=== PATIENT | female | born 1940 | race African-American/Black ===

== ENCOUNTER 2020-12-27 19:39 | Observation (INO) ==
[2020-12-27] MEDS ORDERED: NORMAL SALINE 1,000 ML IV ONE (19:56)
[2020-12-27] MEDS ORDERED: ONDANSETRON HCL/PF 2 MG/ML VIAL IV ONE ×2 (19:56→22:56)
--- NOTE | 2020-12-27 20:01 | ERNOTE ---
Medical Problem HPI - Narrative Date of Service: 12/27/20 - General Chief Complaint: General Assessment Time Seen by Provider: 12/27/20 19:54 Source: patient Exam Limitations: no limitations - Immun/Allergies/Home Medications Immunizations: IMMUNIZATION HX Immunizations Up to Date Yes History of Influenza Vaccine No Hx Pneumococcal Vaccination No Allergies/Adverse Reactions: Allergies Penicillins Allergy (Mild, Verified 12/27/20 19:48) hive Home Medications: HOME MEDICATIONS hydrochlorothiazide 25 mg tablet 25 mg PO DAILY #90 tab 07/10/20 [Last Taken Unknown] metoprolol succinate 25 mg tablet,extended release 24 hr 25 mg PO DAILY #90 tab 08/10/20 [Last Taken Unknown] Diphenoxylate HCl/Atropine [Lomotil Tablet] 1 ea PO QID #10 tab 12/25/20 [Last Taken Unknown] Ondansetron [Zofran Odt] 4 mg PO Q6H PRN #10 tab 12/25/20 [Last Taken Unknown] - History of Present History Narrative: 80-year-old female was seen 3 nights ago to the emergency room for vomiting and diarrhea after eating some bad food at [employer] at that point she was treated and released with Zofran and Lomotil she states that she went home took her Lomotil and Zofran for her diarrhea has slowed up considerably as her vomiting but she still is vomiting her appetite is poor she has not eaten much in the last 3 days she has had a couple bottles of Pedialyte Gatorade denies any abdominal pain no melena Date (Duration): 12/24/20 Time (Timing): 19:59 Timing: constant Severity: moderate Modifying Factors - (Improves): Present: eating, rest Modifying Factors - (Worsens): Present: other Review of Systems - Review of Systems Constitutional: Present: no symptoms reported EYE: Present: no symptoms reported ENT: Present: no symptoms reported Respiratory: Present: no symptoms reported Cardiology: Present: no symptoms reported Gastrointestinal/Abdominal: Present: no symptoms reported Genitourinary: Present: no symptoms reported Musculoskeletal: Present: no symptoms reported Skin: Present: no symptoms reported Neurological: Present: no symptoms reported All Other Systems: All systems neg except as marked Medical History (Last Reviewed 12/27/20 @ 20:00 by Stoney Conklin MD) HTN (hypertension) Onset Date: Unknown History of GI bleed Onset Date: ~2009 Surgical History: Surgical History (Last Reviewed 12/27/20 @ 20:00 by Stoney Conklin MD) H/O abdominal surgery Onset Date: ~2009 GI bleed History of colonoscopy Onset Date: ~2016 WNL per patient Family History: Family History (Last Reviewed 12/27/20 @ 20:35 by Ally Yoo RN) Mother Hypertension Father No problems noted. 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 Highest level of school completed/degree received: 10th grade Service: No Tobacco: Smoking Status: Former smoker how long ago did patient quit smoking: quit 25 years ago-07/2020 Alcohol: alcohol intake: never Substance Use: substance use type: does not use Dietary Habits: caffeine: No Physical Exam - Physical Exam General Appearance: Present: wd/wn, alert, moderate distress Head Exam: Present: normal inspection Eye Exam: Normal inspection: bilateral Ears, Nose, Throat: Present: pharyngeal erythema, dry mucous membranes Neck: Present: normal inspection Respiratory: Present: no respiratory distress Cardiovascular/Chest: Present: tachycardia Gastrointestinal/Abdominal: Present: normal bowel sounds Back Exam: Present: normal inspection Extremity Exam: Present: normal inspection Neurological Exam: Present: alert, oriented Skin Exam: Present: normal color Lymphatic Exam: Present: no adenopathy Progress - Results and Orders Patient's Lab Results:: I have reviewed the patient's lab results. Results and Orders: Laboratory Tests 12/27/20 12/27/20 12/27/20 20:15 20:15 20:15 WBC 6.3 D RBC 5.25 Hgb 15.4 Hct 47.7 H MCV 90.9 MCH 29.3 Neutrophils % 51.6 Lymphocytes % 33.9 Sodium 136 Plasma Sodium 137 Potassium 3.8 Chloride 102 Carbon Dioxide 17.4 L Anion Gap 20.4 H BUN 46 H D Creatinine 1.98 H D Est GFR (Non-Af Amer) 31 L D Lactic Acid, Venous 2.3 H* Calcium 10.2 Calcium Adj for Albumin 10.0 Total Bilirubin 1.6 H AST 25 ALT 30 Alkaline Phosphatase 153 Total Protein 9.8 H Albumin 3.9 Amylase 79 Lipase 150 - Vital Signs Patient's Vital Signs:: I have reviewed the patient's vital signs. Vital Signs: Vital Signs 12/27/20 19:44 Temperature 36.9 C Pulse Rate 122 H Respiratory Rate 18 Blood Pressure 116/85 O2 Sat by Pulse Oximetry 99 - X-Ray X-Ray #1 X-Ray: abdomen Interpretation: Interp. by me X-ray Comments: Diffuse ileus of the abdomen possible air-fluid levels in the right lower quadrant of abdomen - CT/Ultrasound CT/Ultrasound Narrative: CAT scan of the abdomen pelvis with IV contrast acute right abdominal small bowel obstruction with colonic and small bowel postoperative changes left renal pelvic nephrolithiasis intrapulmonary noncalcified reticular nodularity (or uterine fibroids - Progress/Reassessment Chief Complaint: General Assessment Plan - Plan Plan: Place an NG tube into the patient to decompress her and I will admit to the hospital for observation surgical eval in the morning admit to Dr. Lopez Departure Clinical Impression: Small bowel obstruction due to adhesions - Departure Disposition: Short Term Hospital Inpatient Condition: Stable Referrals: Maribeth Jasso MD [Primary Care Provider] -
[2020-12-27 20:37] LABS: Albumin * 3.9 gm/dl (3.4-5.0); Anion Gap 20.4 mmol/L (6.8-13.8); BUN/Creatinine Ratio 23.2 (9.0-21.6); Bilirubin, Total 1.6 mg/dL (0.0-1.1); Calcium * 10.2 mg/dL (7.9-10.9); Carbon Dioxide 17.4 mmol/L (24-32.6); Potassium 3.8 mmol/L (3.4-4.6); Total Protein 9.8 gm/dL (6.2-8.2)
[2020-12-27 20:56] LABS: Hematocrit 47.7 % (37.0-47.0); Hemoglobin 15.4 gm/dL (12.5-16.0); Mean Cell Volume 90.9 fl (78-100); Mean Corpuscular Hemoglobin 29.3 pg (27-31); Mean Corpuscular Hgb Conc 32.3 g/dl (32-36); Mean Platelet Volume 11.7 fl (8-12.5); Neutrophil # 3.2 K/mm3 (1.3-6.0); Neutrophil % 51.6 % (42-75.0); Platelet Count 231 K/mm3 (150-450); Red Blood Count 5.25 M/mm3 (4.2-5.4); Red Cell Distribution Width 13.8 % (11.5-14.0); White Blood Count 6.3 K/mm3 (4.0-10.5)
[2020-12-27] MEDS ORDERED: DIATRIZOATE MEGLUMINE, SODIUM 30 ML BTL PO ONE (21:46)
[2020-12-27 21:53] LABS: Urine Bilirubin 3 mg/dl (NEGATIVE); Urine Blood 25 /ul (NEGATIVE); Urine Ketone Negative (NEGATIVE); Urine Nitrite Negative (NEGATIVE); Urine Protein 100 mg/dL (NEGATIVE); Urine Specific Gravity >=1.030 SP.GR. (1.005-1.010); Urine Urobilinogen Normal (NORMAL)
[2020-12-27 22:01] LABS: Urine Appearance Cloudy (CLEAR); Urine Color Yellow
[2020-12-27 22:02] LABS: Urine RBC TRACE /hpf (0-5); Urine WBC 0-5 /hpf (0-5)
[2020-12-27 22:03] LABS: Urine Bacteria 4+; Urine Hyaline Cast TRACE /LPF
[2020-12-28] MEDS ORDERED: LEVOFLOXACIN IN DEXTROSE 5 % 500 MG/100 ML BAG IV SCH (01:00)
[2020-12-28] MEDS ORDERED: NORMAL SALINE 1,000 ML IV PRN (08:51)
[2020-12-28] MEDS ORDERED: ONDANSETRON HCL/PF 2 MG/ML VIAL IV PRN (08:53)
[2020-12-28] MEDS ORDERED: DIPHENOXYLATE HCL/ATROP SULF 2.5 MG TABLET PO SCH (09:15)
[2020-12-28] MEDS: NORMAL SALINE 2,000 ML IV PRN ×2 (09:45→18:44)
[2020-12-28] MEDS: PANTOPRAZOLE SODIUM 40 MG in NORMAL SALINE 100 ML IV SCH (09:55)
--- NOTE | 2020-12-28 10:27 | CONS ---
[facility] - General Date of Service: 12/28/20 Narrative: She was admitted to observation status through the ER last night. Nasogastric tube was placed and I was consulted. Source: patient, RN/MD, RN notes reviewed Exam Limitations: no limitations - History of Present Illness Initial Comments: The patient is an 80-year-old female who was seen in the emergency room on 12/24/2020 for diarrhea after eating [employer]. She had lab work done but no imaging studies. She was discharged with a prescription for 10 Lomotil pills. She states she has been taking them and has 3 left. Since then she continued to have some loose stools but developed more abdominal pain and distention yesterday so she went to the ER. Initial flat and upright abdominal x-ray suggested ileus versus obstruction. A CT scan was obtained. The initial read from [facility] suggested acute small bowel obstruction. Over read this morning shows dilated loops of small and large intestine with small bowel in the right abdomen and colon on the left side. The patient has had a liquid bowel movement since admission. She states her abdomen feels much better. She is hungry and would like "some juice". Her past medical history is remarkable for a colon resection which was done at [facility] in [place]. She states she had presented to [facility] with GI bleeding. "They could never find where I was bleeding from", but I had diverticulosis. She then had a colon resection in [place]. She thinks half of her colon was removed. Since the operation her stools have been looser and she goes once or twice a day. She denies heartburn or reflux symptoms. Timing/Duration: other - Started with diarrhea on 12/24/2020 Severity: moderate Modifying Factors - (Worsens): Reports: eating Modifying Factors - (Improves): Reports: rest Associated Symptoms: denies symptoms Allergies/Adverse Reactions: Allergies Penicillins Allergy (Mild, Verified 12/27/20 19:48) hive Home Medications: Home Medications Medication Instructions Recorded Last Taken hydrochlorothiazide 25 mg tablet 25 mg PO DAILY #90 tab 07/10/20 Unknown metoprolol succinate 25 mg 25 mg PO DAILY #90 tab 08/10/20 Unknown tablet,extended release 24 hr Diphenoxylate HCl/Atropine 1 ea PO QID #10 tab 12/25/20 Unknown [Lomotil Tablet] Ondansetron [Zofran Odt] 4 mg PO Q6H PRN #10 tab 12/25/20 Unknown Medications - Medications Current Medications: Current Medications Levofloxacin/Dextrose (Levaquin) 500 mg in 100 mls @ 100 mls/hr IV Q24H [facility]; Protocol Stop: 01/27/21 01:01 Last Infusion: 12/28/20 02:33 Dose: Infused Documented by: Pantoprazole Sodium 40 mg/ (Sodium Chloride) 100 mls @ 400 mls/hr IV Q24H [facility] Stop: 01/27/21 09:01 Last Admin: 12/28/20 09:55 Dose: 400 mls/hr Documented by: Sodium Chloride (Sodium Chloride 0.9%) 2,000 mls @ 125 mls/hr IV .Q16H PRN PRN Reason: HYDRATION Stop: 01/27/21 08:52 Last Admin: 12/28/20 09:45 Dose: 125 mls/hr Documented by: Review of Systems - Review of Systems Generalized/Overall Review: Absent: Chills, Fever EENTM: Present: Other - Only complains of discomfort from the NG tube Respiratory: Absent: Cough, Shortness of Breath Cardiac: Absent: Chest Pain, Palpitations Abdominal: Present: Other - Currently she states her abdomen does not hurt. She states she feels much better than when she was admitted. She has had a liquid bowel movement since admission. She is hungry Musculoskeletal: Present: No Symptoms Reported Neurological: Present: No Symptoms Reported Skin: Present: No Symptoms Reported Endocrine: Present: No Symptoms Reported Physical Examination - Exam Vital Signs: Vital Signs - Last Taken Temp 36.7 C 12/28/20 10:05 Pulse 77 12/28/20 10:05 Resp 16 12/28/20 10:05 BP 149/68 12/28/20 10:05 Pulse Ox 99 12/28/20 06:00 O2 Oxygen Delivery Method Room Air Constitutional: Present: Alert, Oriented x3, Cooperative, Well developed, Well nourished, Obese ENT Exam: Present: normal ENT inspection, other - NG tube in good position Neck: Present: full range of motion, normal inspection Breasts: Present: Exam deferred Respiratory: Present: normal breath sounds, no respiratory distress Cardiovascular/Chest: Present: regular rate, rhythm, no murmur. Absent: edema Abdomen: Present: other - She has a well-healed low midline surgical incision. Her abdomen is obese and protuberant with tympany to percussion but no percussion tenderness. There is no discrete point tenderness and no rebound tenderness is elicited Neurologic: Present: clinical application specialist II-XII nml as tested, no motor/sensory deficits Appearance: Present: appropriate appearance, appropriate insight, no memory impairment Eye contact: Present: cooperative, good eye contact, normal speech Thoughts: Present: normal thought pattern - Results and Findings: Lab/Microbiology results last 24 hrs: Abnormal/Pending Laboratory Last 24 HRS 12/27/20 12/27/20 12/27/20 23:00 21:34 20:15 Hct Immature Gran % (Auto) Monocytes % Carbon Dioxide Anion Gap BUN Creatinine Est GFR (Non-Af Amer) BUN/Creatinine Ratio Random Glucose Lactic Acid, Venous 2.5 H* 2.3 H* Total Bilirubin Total Protein Urine Protein 100 H Urine Blood 25 H Urine Bilirubin 3 H Ur Leukocyte Esterase 75 H Ur Epithelial Cells 5-10 H Urine Bacteria 4+ H 12/27/20 12/27/20 20:15 20:15 Hct 47.7 H Immature Gran % (Auto) 0.50 H Monocytes % 13.2 H Carbon Dioxide 17.4 L Anion Gap 20.4 H BUN 46 H D Creatinine 1.98 H D Est GFR (Non-Af Amer) 31 L D BUN/Creatinine Ratio 23.2 H Random Glucose 172 H Lactic Acid, Venous Total Bilirubin 1.6 H Total Protein 9.8 H Urine Protein Urine Blood Urine Bilirubin Ur Leukocyte Esterase Ur Epithelial Cells Urine Bacteria - Assessments/Findings (1) Small bowel obstruction Diagnosis(s): Given her history, the CT scan appearance would be most consistent with a right hemicolectomy. She has has had a bowel movement since admission and minimal NG output. Her abdominal exam is benign. The clinical picture is more compatible with an ileus due to Lomotil than a bowel obstruction. Whether this represents an ileus from having taken Lomotil or possibly from an asymptomatic urinary tract infection is unclear. She does not appear to have a complete small bowel obstruction at this time. She could however potentially have adhesions from her previous surgery. I would recommend trial clamping the NG with clear liquids and any needed p.o. medication. If this is tolerated potentially the NG tube could be removed. Case discussed with Dr. Jasso. Will follow Problem: Acute
--- NOTE | 2020-12-28 10:47 | HP ---
Chief Complaint - Chief Complaint Date of Service: 12/28/20 Time of Service: 10:33 Chief Complaint: I had diarrhea then abdominal pain for 5 days. History of Present Illness: 80-year-old -[place] female with past medical history of diverticulosis with GI bleed, obesity, and hypertension was evaluated in the ER yesterday evening for worsening abdominal pain and distention. The patient was initially seen on Friday when she was treated for acute diarrhea after consuming [employer] chicken. After an evaluation the patient was discharged with Lomitil to help with the diarrhea, several days later her diarrhea improved but she develops intense abdominal pain and distention. The patient also reports becoming nauseous and vomited once. She denies any fever chills or any other symptoms. Once in the ER imaging showed possible bowel obstruction, however after an abdominal CT it was determined that intestinal ileus was more likely most likely secondary to the antidiarrhea she was prescribed in the ER initially. ER labs also revealed an acute kidney injury most likely secondary to her acute diarrhea and a UTI. At this time the patient denies any urinary tract symptoms but given her acute diarrhea it is possible that her urinary tract got infected with excessive wiping. Urine culture was sent to lab and surgery was consulted. The patient was evaluated this morning by Dr. Hughes who after evaluating her determined that the patient does not have bowel obstruction but an ileus due to past right hemicolectomy and antidiarrheal medications. He recommends a trial of nasogastric tube clamping and starting clear liquids to see if she tolerates. I am in agreement with this plan, so orders were placed. In the meantime the patient will need IV hydration to treat her DANA. Medical History (Last Reviewed 12/27/20 @ 20:35 by Ally Yoo RN) HTN (hypertension) Onset Date: Unknown History of GI bleed Onset Date: ~2009 Surgical History: Surgical History (Last Reviewed 12/27/20 @ 20:35 by Ally Yoo RN) H/O abdominal surgery Onset Date: ~2009 GI bleed History of colonoscopy Onset Date: ~2017 WNL per patient Family History: Family History (Last Reviewed 12/27/20 @ 20:35 by Ally Yoo RN) Mother Hypertension Father No problems noted. 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 Highest level of school completed/degree received: 10th grade Service: No Tobacco: Smoking Status: Former smoker how long ago did patient quit smoking: quit 25 years ago-07/2020 Alcohol: alcohol intake: never Substance Use: substance use type: does not use Dietary Habits: caffeine: No Peds Patient Hx - Developmental: No Pertinent Hx Peds Patient Hx - Medical: No Pertinent Hx Peds Patient Hx - Cardiac/Respiratory: No Pertinent Hx Peds Patient Hx - Surgical: No Surgical History Patient History - Cancer: No Hx of Cancer Review Of Systems (GEN) - Review of Systems Generalized/Overall Review: Present: No Symptoms Reported EENTM: Present: No Symptoms Reported Respiratory: Present: No Symptoms Reported Cardiac: Present: No Symptoms Reported Abdominal: Present: Nausea, Vomiting, Abdominal Pain, Diarrhea Genitourinary: Present: No Symptoms Reported Musculoskeletal: Present: No Symptoms Reported Neurological: Present: No Symptoms Reported Skin: Present: No Symptoms Reported Endocrine: Present: No Symptoms Reported Immunizations: IMMUNIZATION HX Immunizations Up to Date Yes History of Influenza Vaccine No Hx Pneumococcal Vaccination No Allergies/Adverse Reactions: Allergies Allergy/AdvReac Type Severity Reaction Status Date / Time Penicillins Allergy Mild hive Verified 12/27/20 19:48 Home Medications: HOME MEDICATIONS hydrochlorothiazide 25 mg tablet 25 mg PO DAILY #90 tab 07/10/20 [Last Taken Unknown] metoprolol succinate 25 mg tablet,extended release 24 hr 25 mg PO DAILY #90 tab 08/10/20 [Last Taken Unknown] Diphenoxylate HCl/Atropine [Lomotil Tablet] 1 ea PO QID #10 tab 12/25/20 [Last Taken Unknown] Ondansetron [Zofran Odt] 4 mg PO Q6H PRN #10 tab 12/25/20 [Last Taken Unknown] Exam - Exam Vital Signs: Vital Signs - Last Taken Temp 36.7 C 12/28/20 10:05 Pulse 77 12/28/20 10:05 Resp 16 12/28/20 10:05 BP 149/68 12/28/20 10:05 Pulse Ox 99 12/28/20 06:00 Constitutional: Present: Alert, Oriented x3, Cooperative, Well developed, Well nourished, No distress, Elderly ENT Exam: Present: normal ENT inspection, hearing grossly normal, pharynx normal, TMs normal Eye Exam: bilateral eye: normal inspection, PERRL, EOMI Neck: Present: non-tender, full range of motion, supple, normal inspection, trachea midline Back Exam: Present: normal inspection, no CVA tenderness, no vertebral tenderness Breasts: Present: Exam deferred, Nontender Respiratory: Present: chest non-tender, lungs clear, normal breath sounds, no respiratory distress, no accessory muscle use Cardiovascular/Chest: Present: normal peripheral pulses, regular rate, rhythm, no chest tenderness, no edema, no gallop, no JVD, no murmur, no rub Abdomen: Present: Normal bowel sounds, soft, nontender, nondistended, no rebound tenderness, no hepatospenomegaly, no masses, obese /Rectal: Present: Exam deferred Extremity: Present: normal range of motion, non-tender, normal inspection, no pedal edema, no calf tenderness, normal capillary refill, pelvis stable Skin Exam: Present: normal color, warm/dry, no cyanosis Lymphatic: Present: no adenopathy Neurologic: Present: wheel alignment technician II-XII nml as tested, normal cerebellar test, no motor/sensory deficits, alert, normal mood/affect, oriented x 3 Appearance: Present: appropriate appearance, appropriate insight, neat, no memory impairment Eye contact: Present: cooperative, good eye contact, normal speech Thoughts: Present: normal thought pattern, no apparent hallucination Diagnostic Studies: Abnormal Lab Results 12/27/20 12/27/20 12/27/20 Range/Units 20:15 20:15 20:15 Hct 47.7 H (37.0-47.0) % Immature Gran % (Auto) 0.50 H (0.001-0.429) % Monocytes % 13.2 H (0.0-9) % Carbon Dioxide 17.4 L (24-32.6) mmol/L Anion Gap 20.4 H (6.8-13.8) mmol/L BUN 46 H D (3-23) mg/dL Creatinine 1.98 H D (0.4-1.4) mg/dL Est GFR (Non-Af Amer) 31 L D (60-130) mL/min BUN/Creatinine Ratio 23.2 H (9.0-21.6) Random Glucose 172 H (70-110) mg/dL Lactic Acid, Venous 2.3 H* (0.4-2.0) mmol/L Total Bilirubin 1.6 H (0.0-1.1) mg/dL Total Protein 9.8 H (6.2-8.2) gm/dL Urine Protein (NEGATIVE) mg/dL Urine Blood (NEGATIVE) /ul Urine Bilirubin (NEGATIVE) mg/dl Ur Leukocyte Esterase (NEGATIVE) /ul Ur Epithelial Cells (0-5) /hpf Urine Bacteria (NONE) 12/27/20 12/27/20 Range/Units 21:34 23:00 Hct (37.0-47.0) % Immature Gran % (Auto) (0.001-0.429) % Monocytes % (0.0-9) % Carbon Dioxide (24-32.6) mmol/L Anion Gap (6.8-13.8) mmol/L BUN (3-23) mg/dL Creatinine (0.4-1.4) mg/dL Est GFR (Non-Af Amer) (60-130) mL/min BUN/Creatinine Ratio (9.0-21.6) Random Glucose (70-110) mg/dL Lactic Acid, Venous 2.5 H* (0.4-2.0) mmol/L Total Bilirubin (0.0-1.1) mg/dL Total Protein (6.2-8.2) gm/dL Urine Protein 100 H (NEGATIVE) mg/dL Urine Blood 25 H (NEGATIVE) /ul Urine Bilirubin 3 H (NEGATIVE) mg/dl Ur Leukocyte Esterase 75 H (NEGATIVE) /ul Ur Epithelial Cells 5-10 H (0-5) /hpf Urine Bacteria 4+ H (NONE) Laboratory Results WBC 6.3 K/mm3 (4.0-10.5) D 12/27/20 20:15 RBC 5.25 M/mm3 (4.2-5.4) 12/27/20 20:15 Hgb 15.4 gm/dL (12.5-16.0) 12/27/20 20:15 Hct 47.7 % (37.0-47.0) H 12/27/20 20:15 MCV 90.9 fl (78-100) 12/27/20 20:15 MCH 29.3 pg (27-31) 12/27/20 20:15 MCHC 32.3 g/dl (32-36) 12/27/20 20:15 RDW 13.8 % (11.5-14.0) 12/27/20 20:15 Plt Count 231 K/mm3 (150-450) 12/27/20 20:15 MPV 11.7 fl (8-12.5) 12/27/20 20:15 Immature Gran % (Auto) 0.50 % (0.001-0.429) H 12/27/20 20:15 Immature Gran # (Auto) 0.03 K/mm3 (0.000-0.0310) 12/27/20 20:15 Neutrophils % 51.6 % (42-75.0) 12/27/20 20:15 Lymphocytes % 33.9 % (20-51) 12/27/20 20:15 Monocytes % 13.2 % (0.0-9) H 12/27/20 20:15 Eosinophils % 0.3 % (0.0-3.0) 12/27/20 20:15 Basophils % 0.5 % (0.0-1.0) 12/27/20 20:15 Nucleated RBC % 0.0 k/mm3 (0-1) 12/27/20 20:15 Neutrophils # 3.2 K/mm3 (1.3-6.0) 12/27/20 20:15 Lymphocytes # 2.13 k/mm3 (1.5-3.5) 12/27/20 20:15 Monocytes # 0.8 k/mm3 (0.0-1.0) 12/27/20 20:15 Eosinophils # 0.0 k/mm3 (0.0-0.7) 12/27/20 20:15 Absolute Basophils 0.0 k/mm3 (0.0-0.1) 12/27/20 20:15 Sodium 136 mmol/L (132-142) 12/27/20 20:15 Plasma Sodium 137 mmol/L (130-142) 12/27/20 20:15 Potassium 3.8 mmol/L (3.4-4.6) 12/27/20 20:15 Chloride 102 mmol/L (97-106) 12/27/20 20:15 Carbon Dioxide 17.4 mmol/L (24-32.6) L 12/27/20 20:15 Anion Gap 20.4 mmol/L (6.8-13.8) H 12/27/20 20:15 BUN 46 mg/dL (3-23) H D 12/27/20 20:15 Creatinine 1.98 mg/dL (0.4-1.4) H D 12/27/20 20:15 Est GFR (Non-Af Amer) 31 mL/min (60-130) L D 12/27/20 20:15 BUN/Creatinine Ratio 23.2 (9.0-21.6) H 12/27/20 20:15 Random Glucose 172 mg/dL (70-110) H 12/27/20 20:15 Lactic Acid, Venous 2.5 mmol/L (0.4-2.0) H* 12/27/20 23:00 Calcium 10.2 mg/dL (7.9-10.9) 12/27/20 20:15 Calcium Adj for Albumin 10.0 mg/dL (8.4-10.2) 12/27/20 20:15 Total Bilirubin 1.6 mg/dL (0.0-1.1) H 12/27/20 20:15 AST 25 U/L (0-48) 12/27/20 20:15 ALT 30 U/L (19-67) 12/27/20 20:15 Alkaline Phosphatase 153 U/L (50-170) 12/27/20 20:15 Total Protein 9.8 gm/dL (6.2-8.2) H 12/27/20 20:15 Albumin 3.9 gm/dl (3.4-5.0) 12/27/20 20:15 Amylase 79 U/L (25-115) 12/27/20 20:15 Lipase 150 U/L (73-393) 12/27/20 20:15 Urine Color Yellow 12/27/20 21:34 Urine Appearance Cloudy (CLEAR) 12/27/20 21:34 Urine pH 6.0 pH (5.0-7.0) 12/27/20 21:34 Ur Specific [place] >=1.030 SP.GR. (1.005-1.010) 12/27/20 21:34 Urine Protein 100 mg/dL (NEGATIVE) H 03/24/21 21:34 Urine Glucose (UA) Negative mg/dL (NEGATIVE) 12/27/20 21:34 Urine Ketones Negative mg/dL (NEGATIVE) 12/27/20 21:34 Urine Blood 25 /ul (NEGATIVE) H 12/27/20 21:34 Urine Nitrate Negative (NEGATIVE) 12/27/20 21:34 Urine Bilirubin 3 mg/dl (NEGATIVE) H 12/27/20 21:34 Urine Urobilinogen Normal EU/dl (NORMAL) 12/27/20 21:34 Ur Leukocyte Esterase 75 /ul (NEGATIVE) H 12/27/20 21:34 Urine RBC Trace /hpf (0-5) 12/27/20 21:34 Urine WBC 0-5 /hpf (0-5) 12/27/20 21:34 Ur Epithelial Cells 5-10 /hpf (0-5) H 12/27/20 21:34 Urine Bacteria 4+ (NONE) H 12/27/20 21:34 Hyaline Casts Trace /LPF (NONE) 12/27/20 21:34 Urine Culture Comments Culture to follow 12/27/20 21:34 SARS-CoV-2 (PCR) Not detected (NotDetected) 12/28/20 02:00 Assessment/Plan - Narrative Narrative: We will treat patient with IV hydration and IV antibiotics to treat her acute kidney injury and UTI. We will also see if she tolerates oral intake and progress her diet appropriately, subsequently we will remove NG tube. Patient appears comfortable at the moment and denies any other concerns. Follow-up labs have been ordered for tomorrow morning for reevaluation of electrolytes and renal function. - Assessment/Plan (1) Ileus following gastrointestinal surgery Problem: Acute (2) Food poisoning Problem: Acute (3) DANA (acute kidney injury) Problem: Acute (4) Acute dehydration Problem: Acute (5) Diarrhea secondary to food allergy Problem: Acute (6) HTN (hypertension) Problem: Chronic (7) UTI (urinary tract infection) Problem: Acute
[2020-12-28] MEDS: HYDROCHLOROTHIAZIDE 25 MG TABLET PO SCH (11:19)
[2020-12-28] MEDS: METOPROLOL SUCCINATE 25 MG TABLET.SA PO SCH (11:20)
[2020-12-28] MEDS ORDERED: BISACODYL 5 MG TABLET.DR PO ONE (17:41)
--- NOTE | 2020-12-28 17:44 | PN ---
Dictated Progress Note - Date and Time Seen: Date: 12/28/20 Time: 17:42 - Progress Note Narrative: Vital Signs - Last Taken Temp 36.5 C 12/28/20 14:17 Pulse 96 12/28/20 14:17 Resp 16 12/28/20 14:17 BP 154/73 H 12/28/20 14:17 Pulse Ox 97 12/28/20 14:17 Abnormal/Pending Laboratory Last 24 HRS 12/27/20 12/27/20 12/27/20 23:00 21:34 20:15 Hct Immature Gran % (Auto) Monocytes % Carbon Dioxide Anion Gap BUN Creatinine Est GFR (Non-Af Amer) BUN/Creatinine Ratio Random Glucose Lactic Acid, Venous 2.5 H* 2.3 H* Total Bilirubin Total Protein Urine Protein 100 H Urine Blood 25 H Urine Bilirubin 3 H Ur Leukocyte Esterase 75 H Ur Epithelial Cells 5-10 H Urine Bacteria 4+ H 12/27/20 12/27/20 20:15 20:15 Hct 47.7 H Immature Gran % (Auto) 0.50 H Monocytes % 13.2 H Carbon Dioxide 17.4 L Anion Gap 20.4 H BUN 46 H D Creatinine 1.98 H D Est GFR (Non-Af Amer) 31 L D BUN/Creatinine Ratio 23.2 H Random Glucose 172 H Lactic Acid, Venous Total Bilirubin 1.6 H Total Protein 9.8 H Urine Protein Urine Blood Urine Bilirubin Ur Leukocyte Esterase Ur Epithelial Cells Urine Bacteria She has done well over the course of the day with the NG tube clamped. She has tolerated liquids. She has had at least 2 liquid bowel movements. She denies abdominal pain. Flat and upright abdominal x-ray shows air-fluid levels throughout both the large and small bowel more compatible with an ileus than obstructive process. IMPRESSION: Possible resolving ileus. RECOMMENDATION: Will DC NG tube, however would leave on liquids until tomorrow. Will trial a dose of Dulcolax to help the colon empty We will continue to follow
[2020-12-29] MEDS ORDERED: LEVOFLOXACIN IN DEXTROSE 5 % 500 MG/100 ML BAG IV SCH (01:00)
[2020-12-29 06:38] LABS: Albumin * 3.1 gm/dl (3.4-5.0); Anion Gap 16.4 mmol/L (6.8-13.8); BUN/Creatinine Ratio 24.5 (9.0-21.6); Bilirubin, Total 1.5 mg/dL (0.0-1.1); Calcium * 9.6 mg/dL (7.9-10.9); Carbon Dioxide 21.7 mmol/L (24-32.6); Potassium 3.1 mmol/L (3.4-4.6); Total Protein 8.1 gm/dL (6.2-8.2)
--- NOTE | 2020-12-29 08:14 | PN ---
Subjective - Date and Time Seen Date: 12/29/20 Time: 08:12 Subjective Narrative: She was admitted with possible small bowel obstruction. She had a nasogastric tube placed. She tolerated a trial clamping and x-ray demonstrated air-fluid levels throughout the small and large bowel compatible with an ileus. Her nasogastric tube was removed yesterday. She had no problems overnight. Only intermittent crampy abdominal pain. She has had bowel movements Objective - Review of Systems Generalized/Overall Review: Denies: Chills, Fever EENTM: Reports: No Symptoms Reported Respiratory: Denies: Cough, Shortness of Breath Cardiac: Denies: Chest Pain, Palpitations Abdominal: Reports: Other - Only occasional crampy discomfort Genitourinary Symptoms: Reports: No Symptoms Reported Musculoskeletal Complaints: Reports: No Symptoms Reported Neurological: Reports: No Symptoms Reported - Vitals Vitals: Last Vital Signs Temp 36.7 C 12/29/20 07:00 Pulse 93 12/29/20 07:00 Resp 16 12/29/20 07:00 BP 165/83 H 12/29/20 07:00 Pulse Ox 96 12/29/20 07:00 - Abnormal Lab Findings Abnormal Lab Findings: Abnormal Lab Results 12/29/20 Range/Units 06:18 Potassium 3.1 L (3.4-4.6) mmol/L Carbon Dioxide 21.7 L (24-32.6) mmol/L Anion Gap 16.4 H (6.8-13.8) mmol/L BUN 26 H (3-23) mg/dL BUN/Creatinine Ratio 24.5 H (9.0-21.6) Random Glucose 122 H (70-110) mg/dL Total Bilirubin 1.5 H (0.0-1.1) mg/dL Albumin 3.1 L (3.4-5.0) gm/dl - Exam Constitutional: Present: Alert, Oriented x3, Cooperative, Well developed, Well nourished, No distress ENT Exam: Present: normal ENT inspection Neck: Present: full range of motion, normal inspection Breasts: Present: Exam deferred Respiratory: Present: no respiratory distress Cardiovascular/Chest: Present: regular rate, rhythm Abdomen: Present: other - She denies pain or tenderness /Rectal: Present: Exam deferred Extremity: Present: normal range of motion Skin Exam: Present: normal color 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 Begin consistent carbohydrate diet - Problems/Diagnosis (1) Small bowel obstruction Problem: Acute
[2020-12-29] MEDS ORDERED: POTASSIUM CHLORIDE 20 MEQ TABLET.SA PO ONE (09:01)
--- NOTE | 2020-12-29 09:10 | DS ---
(1) Ileus following gastrointestinal surgery Problem: Resolved (2) Food poisoning Problem: Resolved (3) DANA (acute kidney injury) Problem: Resolved (4) Acute dehydration Problem: Acute (5) Diarrhea secondary to food allergy Problem: Resolved (6) HTN (hypertension) Problem: Chronic (7) UTI (urinary tract infection) Problem: Acute (8) Hypokalemia Problem: Acute Date of Discharge:: 12/29/20 Hospital Course: 80-year-old -[place] female admitted for intestinal ileus, acute dehydration, and DANA secondary to refractory diarrhea was evaluated at bedside and was found to be afebrile and in no acute distress. Patient has improved since arriving at the hospital, she is now moving her bowels without any difficulty and is tolerating oral intake. Labs this morning revealed hypokalemia most likely secondary to her diarrhea, so oral potassium supplements was ordered. Decision to discharge patient with a follow-up appointment with her PCP myself and a repeat BMP in 1 week was made. She is in agreement with this plan. Procedures Performed: none Results and Findings: Pending Mircobiology Results 12/27/20 21:34 Urine,Clean Catch Urine Culture - Preliminary Gram Negative Bacilli Gram Negative Bacilli#2 Gram Negative Bacilli#3 Lab Pending Results 12/27/20 20:15: WBC 6.3 D, RBC 5.25, Hgb 15.4, Hct 47.7 H, MCV 90.9, MCH 29.3, MCHC 32.3, RDW 13.8, Plt Count 231, MPV 11.7, Immature Gran % (Auto) 0.50 H, Immature Gran # (Auto) 0.03, Neutrophils % 51.6, Lymphocytes % 33.9, Monocytes % 13.2 H, Eosinophils % 0.3, Basophils % 0.5, Nucleated RBC % 0.0, Neutrophils # 3.2, Lymphocytes # 2.13, Monocytes # 0.8, Eosinophils # 0.0, Absolute Basophils 0.0 12/27/20 20:15: Sodium 136, Plasma Sodium 137, Potassium 3.8, Chloride 102, Carbon Dioxide 17.4 L, Anion Gap 20.4 H, BUN 46 H D, Creatinine 1.98 H D, Est GFR (Non-Af Amer) 31 L D, BUN/Creatinine Ratio 23.2 H, Random Glucose 172 H, Calcium 10.2, Calcium Adj for Albumin 10.0, Total Bilirubin 1.6 H, AST 25, ALT 30, Alkaline Phosphatase 153, Total Protein 9.8 H, Albumin 3.9, Amylase 79, Lipase 150 12/27/20 20:15: Lactic Acid, Venous 2.3 H* 12/27/20 21:34: Urine Color Yellow, Urine Appearance Cloudy, Urine pH 6.0, Ur Specific [place] >=1.030, Urine Protein 100 H, Urine Glucose (UA) Negative, Urine Ketones Negative, Urine Blood 25 H, Urine Nitrate Negative, Urine Bilirub in 3 H, Urine Urobilinogen Normal, Ur Leukocyte Esterase 75 H, Urine RBC Trace, Urine WBC 0-5, Ur Epithelial Cells 5-10 H, Urine Bacteria 4+ H, Hyaline Casts Trace, Urine Culture Comments Culture to follow 12/27/20 23:00: Lactic Acid, Venous 2.5 H* 12/28/20 02:00: SARS-CoV-2 (PCR) Not detected 12/29/20 06:18: Sodium 140, Plasma Sodium 140, Potassium 3.1 L, Chloride 105, Carbon Dioxide 21.7 L, Anion Gap 16.4 H, BUN 26 H, Creatinine 1.06, Est GFR (Non-Af Amer) 64 D, BUN/Creatinine Ratio 24.5 H, Random Glucose 122 H, Calcium 9.6, Calcium Adj for Albumin 10.0, Total Bilirubin 1.5 H, AST 32, ALT 37, Alkaline Phosphatase 145, Total Protein 8.1, Albumin 3.1 L Discharge Location: Home Disposition: Home self-care Condition: Stable Discharge Activity: Activity as tolerated Discharge Diet: General/regular food Referrals: Maribeth Jasso MD [Primary Care Provider] - Prescriptions (Any new or edited meds): Levofloxacin [Levaquin] 500 mg PO DAILY #3 tab Transmission Status: Pending to [facility] #[id number] Complete Home Medications List: Complete Home Medication List: hydrochlorothiazide 25 mg tablet 25 mg PO DAILY #90 tab 07/10/20 metoprolol succinate 25 mg tablet,extended release 24 hr 25 mg PO DAILY #90 tab 08/10/20 Diphenoxylate HCl/Atropine [Lomotil 2.5-0.025 mg Tablet] 1 ea PO QID #10 tab 12/25/20 Ondansetron [Zofran Odt] 4 mg PO Q6H PRN #10 tab 12/25/20 Levofloxacin [Levaquin] 500 mg PO DAILY #3 tab 12/29/20
[2020-12-29] MEDS ORDERED: AMLODIPINE BESYLATE 2.5 MG TABLET PO ONE (09:15)
[2020-12-29] MEDS: METOPROLOL SUCCINATE 25 MG TABLET.SA PO SCH (09:38)
[2020-12-29] MEDS: PANTOPRAZOLE SODIUM 40 MG in NORMAL SALINE 100 ML IV SCH (09:38)
[2020-12-29] MEDS: HYDROCHLOROTHIAZIDE 25 MG TABLET PO SCH (09:38)
[2020-12-29 13:17] VITALS: BP 140/79
== END 2020-12-29 13:32 | disposition home or self-care (01) ==
LOC: MS 19:39 → ER 19:39 → MS 12-28 03:48
PROVIDERS: ADMIT Internal Medicine; ATTEND Family Medicine